=== PATIENT | female | born 1995 | race Caucasian/White ===

== ENCOUNTER 2022-02-08 12:30 | Observation (INO) | payer OTHER, SELFPAY ==
[2022-02-08] VITALS (12 sets, daily range): BP systolic 114–149; BP diastolic 57–98; PULSE 92–119; RESP 14–30; TEMP 36.4–37.5; O2SAT 91–100; BMI 42.3
--- NOTE | 2022-02-08 | PATH_ITS ---
[facility] Accession Number: [id number] . 01 Material submitted: . appendix - APPENDIX . 01 Diagnosis: Appendix, Appendectomy: Acute appendicitis and periappendicitis. MRV 02/11/2022 1429 Local . 01 Electronically signed: . Britni Lazaro MD, Pathologist NPI- [id number] . 01 Gross description: . Received in formalin in a specimen container, labeled with the patient's name and medical record number, appendix, is an intact appendix with attached moderate amount of mesentery and stapled resection margin. The specimen measures 7.5 cm in length and 0.9 cm in diameter. The stapled resection margin measures 0.7 cm in diameter. The serosal surface is diffusely dusky love, focally slightly hyperemic. No distinct perforations are grossly identified. The specimen is opened to reveal a centrally located lumen that measures 0.3 cm in diameter filled with fecal content. The average wall thickness is 0.3 cm. Airport Clerk sections are submitted in cassettes A1-A2 as follows: . A1: Bisected tip. A2: Resection margin en face and random sections. ([id number]) /MRV 02/10/2022 1033 Local . 01 Pathologist provided ICD-10: K35.80 . 01 CPT . 903023 Performed at: [facility] [address] [place] [address], [place], [place] [id number] MD Nic Ferrara MD Phone: [phone]
--- NOTE | 2022-02-08 16:06 | PC.NURSE ---
Day shift: Pt in room from BLS transport at approx 1600. She is calm and cooperative. Reports ABD pain 09/25. A&Ox4. Oriented to room and call light. Per PEYTON Glass surgery is ready for her NOW. Surgery dept called but no answer at this time. Dr Quevedo in room with Pt as this note is written ([id number]).
--- NOTE | 2022-02-08 16:16 | P.HP_ITS ---
History of Present Illness History of Present Illness Date Patient Seen: 02/08/22 Time Patient Seen: 16:16 Chief complaint: Acute Appendicitis Narrative: Sofie is a 26-year-old woman who presented to the emergency room at [facility] this morning complaining of roughly 12 hours of abdominal pain and nausea. She was noted to have a leukocytosis of 15,[address] scan was performed which showed a likely uncomplicated appendicitis. She was given Zosyn in the emergency room at [facility]. She has never had prior surgery. She is no known drug allergies. Patient History Comment: PCOS Carpal tunnel syndrome Seasonal allergies Anxiety and depression Exam Narrative Exam Narrative: Obese Right lower quadrant tenderness to deep palpation No peritoneal signs Assessment & Plan Assessment and plan (1) Acute appendicitis: Qualifiers: Acute appendicitis type: with localized peritonitis Appendicitis gangrene presence: without gangrene Appendicitis perforation presence: without perforation Appendicitis abscess presence: without abscess Qualified Code(s): K35.30 - Acute appendicitis with localized peritonitis, without perforation or gangrene Status: Acute Plan 26-year-old woman with acute appendicitis. We discussed the risks, benefits and alternatives of laparoscopic appendectomy. She would like to proceed. We will give her another dose of Zosyn before we go to surgery. Time Spent With Patient Critical Care time: I spent a total of [] minutes of critical care time on this patient's care today; this time is exclusive of procedural time.
[2022-02-08] MEDS: PIPERACILLIN/TAZO 4.5 GM in SODIUM CHLORIDE 0.9% 100 ML IV (16:43)
--- NOTE | 2022-02-08 17:27 | PC.NURSE ---
Pt got Zosyn started and infusing, to surgery, brief report given to OR RNs, VSS. POX 100% on RA. Pt off unit.
--- NOTE | 2022-02-08 18:13 | SUR.OPER ---
Supine on padded OR bed. Harrah Pad Positioner under torso. Head on pillow, arms padded and tucked at sides. Legs uncrossed, safety strap on thigh, lower legs on gel pad and tape across padded with blankets. directed and approved by surgeon
[2022-02-08] MEDS: LACTATED RINGERS 1,000 ML 100 ML IV ×2 (18:26→19:40)
[2022-02-08] MEDS: LIDOCAINE 1% W/EPI 12.5 ML INJ (18:26)
[2022-02-08] MEDS: BUPIVACAINE 0.5% (PF) VIAL 17.5 ML INJ (18:27)
--- NOTE | 2022-02-08 18:30 | PM.OP.1 ---
Operative Date/Time/Diagnoses Date of procedure: 02/08/22 Time of procedure: 18:30 Pre-op diagnosis: Acute appendicitis Post-op diagnosis: same Procedure & Clinicians Procedure: Laparoscopic appendectomy Same procedure as scheduled: Yes Surgeon: Thai Quevedo Anesthesia Type: General Operative Notes Findings: Inflamed appendix without perforation Procedure in detail: Procedure in detail: The patient was on Zosyn. The patient was brought to the operating room, placed on the table in the supine position and general endotracheal anesthesia was induced. A time-out was performed. The abdomen was prepped and draped in the usual fashion. After injection of local anesthetic a 1 cm infraumbilical incision was created with a 15 blade scalpel. The umbilical stalk was grasped with a Rashaun clamp to elevate the abdominal wall. The infraumbilical midline fascia was cleared over 1 cm and the fascia was scored with cautery. The peritoneum was pierced with a Peon clamp. The Fercho port was placed and the abdomen was insufflated to 15 mmHg. The camera was inserted and there was no evidence of any injury from the entry. Next, 5 mm ports were placed in the suprapubic and left lower quadrant positions under direct vision. The patient was placed in Trendelenburg with the right-side elevated. The terminal ileum was swept away from the cecum and the appendix was visualized. The appendix was inflamed and distended but not perforated and there was no evidence of gangrene. The mesoappendix was taken down with the bipolar energy device to the appendiceal base. Two PDS Endoloops were placed at the base and a 3rd endoloop was placed about a cm distally and the appendix was divided sharply. The specimen was placed in a Endo-Catch bag. A small amount of fluid with suction from the base of the appendix and pelvis. The table was flattened and the terminal ileum and omentum were allowed to slide in over the appendiceal stump. Finally, the 5 mm ports were removed under direct vision. The pneumoperitoneum was released and the Fercho port was removed followed by the Endo-Catch bag. Additional local was injected into the fascia and the infraumbilical incision was closed with 2 interrupted 2-0 Vicryl sutures. The skin incisions were closed with 4 Monocryl. Steri-Strips were applied followed by Band-Aids. EBL: 5 mL Specimen: Appendix Post-operative Condition: stable Disposition: PACU
[2022-02-08] MEDS: IBUPROFEN 600 MG TABLET PO (19:51)
[2022-02-08] MEDS: METOPROLOL IR 25 MG TABLET PO (22:45)
[2022-02-08] MEDS: HYDROCODONE/ACET 5/325 TABLET 1 TAB PO (22:45)
[2022-02-09] VITALS: BP 121/61; PULSE 86; RESP 17; TEMP 36.6; O2SAT 99
[2022-02-09] MEDS: HYDROCODONE/ACET 5/325 TABLET 1 TAB PO ×2 (03:46→08:07)
[2022-02-09 04:00] VITALS: BP 128/75; PULSE 84; RESP 16; TEMP 36.2; O2SAT 99
--- NOTE | 2022-02-09 06:45 | PC.NURSE ---
pt came back from PACU AROUND 1930 last night. Pt currently alert and oriented. Pt under control using norco (pt has allergic to it minor itching) which hasn't been happening at all tonight. pt IVF discontinued last night. Pt tolerating regular diet and along with adequate fluid intake. Incision to abdomen CDI. Osito at the bed side.
[2022-02-09 08:00] VITALS: BP 120/75; PULSE 76; RESP 16; TEMP 36.2; O2SAT 99
[2022-02-09] MEDS: SERTRALINE 50 MG TABLET 25 MG PO (08:07)
[2022-02-09] MEDS: METOPROLOL IR 25 MG TABLET PO (08:07)
[2022-02-09] MEDS: SODIUM CHLORIDE 0.9% FLUSH 10 ML IV (08:09)
--- NOTE | 2022-02-09 08:57 | P.DS_ITS ---
History of Present Illness History of Present Illness Chief complaint: Acute Appendicitis Narrative: Sofie is a 26-year-old woman who presented to the emergency room at [facility] this morning complaining of roughly 12 hours of abdominal pain and nausea. She was noted to have a leukocytosis of 15,[address] scan was performed which showed a likely uncomplicated appendicitis. She was given Zosyn in the emergency room at [facility]. She has never had prior surgery. She is no known drug allergies. Discharge Providers Provider Date of admission: 02/08/22 12:30 Discharge Date: 02/09/22 Primary care physician: Bossman Reis MD Discharge provider: Thai Quevedo MD Summary Hospital Course Discharge Diagnosis: Acute appendicitis Hospital Course: The patient underwent a laparoscopic appendectomy on the day of her admission which was 02/08/2022. See the op note for details. She tolerated the procedure well and went to the floor for recovery. She tolerated a diet with good pain control and was discharged on the morning of postoperative day 1. Status at Discharge Cognitive/behavioral status at discharge: oriented Functional status at discharge: independent ambulation Overall status at discharge: patient is back to baseline Exam Vital Signs (past 8 hours): - 02/09/22 04:00 02/09/22 08:00 02/09/22 08:00 Temperature 97.2 F L 97.2 F L Pulse Rate 84 76 Respiratory Rate 16 16 Blood Pressure 128/75 120/75 Pulse Oximetry 99 99 Oxygen Flow Rate 0 0 Oxygen Delivery Method Nasal Cannula Oxygen Flow Rate 0 PFSH Medical History (Updated 02/08/22 @ 17:48 by Ava Rushing RN) Depression Prediabetes Sinus tachycardia Surgical History (Updated 02/08/22 @ 17:47 by Ava Rushing RN) Hx of tonsillectomy Social History household members: spouse Smoking Status: Never smoker alcohol intake: never Discharge Plan Discharge Plan Patient Disposition: Home Provider Discharge Comment: No lifting greater than 20 lb for 2 weeks. Okay to remove the outer dressing and shower after 24 hours. Leave the Steri-Strips on until they start to peel off in 1-2 weeks. Resume all home medications. Discharge orders & Medications Prescriptions: New hydrocodone-acetaminophen 5-325 mg tablet 1 tab PO Q8H PRN (Reason: pain) Qty: 10 0RF Continued medroxyprogesterone [Provera] 10 mg tablet 10 tab PO DAILY Label Comments: TAKE 1 TABLET BY MOUTH EVERY DAY metformin 500 mg tablet extended release 24 hr 500 tab PO BID Label Comments: TAKE 1 TABLET BY MOUTH TWICE DAILY WITH MEALS AND WITH DINNER metoprolol tartrate 25 mg tablet 25 tab PO BID Label Comments: TAKE 1 TABLET BY MOUTH TWICE DAILY sertraline 25 mg tablet 25 tab PO DAILY Follow up/Referrals: Bossman Reis MD [Primary Care Provider] - Visit Report/Discharge Packet Instructions: DI for an Appendectomy, DI for Laparoscopy Discharge Data Primary Care Provider: Bossman Reis
== END 2022-02-09 11:02 | disposition home or self-care (01) ==
PROVIDERS: Admitting Provider Surgery; PCP Internal Medicine; Referring Provider Surgery; Visit Provider Surgery
PROC: 0DTJ4ZZ Resection of Appendix, Percutaneous Endoscopic Approach (ICD-10-PCS; CPT 44970; principal; 2022-02-08 16:15)
DX: K35.890 Other acute appendicitis without perforation or gangrene (principal); R73.03 Prediabetes; K21.9 Gastro-esophageal reflux disease without esophagitis; Z79.84 Long term (current) use of oral hypoglycemic drugs; F32.A Depression, unspecified; R00.0 Tachycardia, unspecified; E66.9 Obesity, unspecified
CPT/HCPCS: 44970; 99220; G0378; G0379; J2250; J2543; J2704; J3010

== ENCOUNTER → 2022-03-05 12:17 | Outpatient (CLI) | payer OTHER, SELFPAY ==
[2022-02-08 19:16] VITALS: BMI 42.3
--- NOTE | 2022-03-05 12:18 | DI.US.S_ITS ---
PROCEDURE: US PELVIC COMPLETE INDICATIONS: Hx of PCOS, oligomenorrhea; eval endometrial thickness TECHNIQUE: Real-time scanning was performed of the pelvic organs, with image documentation. Additional endovaginal scanning was necessary due to incomplete visualization of the adnexal and endometrial structures by transabdominal scanning. COMPARISON: [facility], RG, CT ABDOMEN/PELVIS WITHOUT CONTRAST, 02/08/2022, 8:38. FINDINGS: Uterus: Uterus is normal in size at 6.6 x 4.6 x 6.5 cm cm. The endometrium measures 18.6 mm combined thickness. The endometrial stripe appears thickened, with multiple hypoechoic foci within it. Incidental note is made of nabothian cysts. Ovaries: The ovaries are not well seen. On the right, there does appear to be more than 12 follicles. The right ovary measures 5.1 x 2.8 x 2.7 cm. The left ovary measures 4.7 x 2 5 x 2.4 cm. The ovaries have a normal sonographic appearance. No adnexal masses are seen. A normal appearing waveform is confirmed to the right ovary. Waveforms are not able to be confirmed to the left ovary. Other: A mild amount of free pelvic fluid is seen, which is considered to be within physiologic limits. IMPRESSION: Thickened, abnormal endometrial stripe, with multiple hypoechoic foci seen within it. More than 12 follicles can be seen involving the right ovary, which is consistent with polycystic ovarian syndrome. We strive to produce accurate, complete, and clear reports of imaging services. To assist us in improving patient care, this report was composed using standard report templates and voice recognition software. Therefore, it may contain abnormal punctuation, insertions and/or omissions. Occasional wrong-word or sound-alike substitutions may occur. Though we review the report and make efforts to correct it, we do recommend that the report be read carefully in proper context to recognize any text inaccuracies. Dictated by: Los Escobar M.D. on 03/05/2022 at 12:15 Approved by: Los Escobar M.D. on 03/05/2022 at 12:18
== END ==
PROVIDERS: PCP Internal Medicine; Referring Provider Obstetrics & Gynecology; Visit Provider Obstetrics & Gynecology
DX: E28.2 Polycystic ovarian syndrome (principal); N97.0 Female infertility associated with anovulation; R93.89 Abnormal findings on diagnostic imaging of other specified body structures
CPT/HCPCS: 76830; 76856

== ENCOUNTER 2023-04-22 19:23 | Emergency (ER) | payer OTHER, SELFPAY ==
[2023-04-22 19:23] VITALS: BMI 42.3
[2023-04-22 19:43] VITALS: BP 128/81; PULSE 86; RESP 18; TEMP 37.2; O2SAT 99
--- NOTE | 2023-04-22 19:55 | DI.RAD.S_ITS ---
PROCEDURE: XR CHEST 2V INDICATIONS: cough TECHNIQUE: 2 views of the chest were acquired. COMPARISON: None. FINDINGS: Surgical changes and devices: None. Lungs and pleura: Lung volumes are low. Mild peribronchial cuffing. No pleural effusions. Mediastinum: Heart size is normal. Bones and chest wall: No suspicious bony abnormalities. Soft tissues appear unremarkable. IMPRESSION: Low lung volumes. No dense consolidation or pleural effusion. Mild peribronchial cuffing could represent viral/atypical infection or bronchitis. Dictated by: Jeramy Quesada M.D. on 04/22/2023 at 20:44 Approved by: Jeramy Quesada M.D. on 04/22/2023 at 20:45
[2023-04-22 20:47] LABS: Influenza A - CEPHEID Flu A NEGATIVE (NEGATIVE); Influenza B - CEPHEID Flu B NEGATIVE (NEGATIVE); Respiratory Syncytial Virus Negative (Negative)
[2023-04-22 20:51] LABS: COVID-19 CEPHEID 4-PLEX PCR Negative (Negative)
--- NOTE | 2023-04-22 21:15 | ED.URI ---
HPI - URI/Sore Throat General Chief Complaint: Upper Respiratory Symptoms Stated Complaint: cough Time Seen by Provider: 04/22/23 19:27 Source: patient Mode of arrival: Ambulatory History of Present Illness HPI Narrative: 27-year-old female nonsmoker with history of diabetes presents with her in the chief complaint of a week or 2 of cough, typically dry and hacking. She states on occasion she gets some sharp twinges of pain on her lateral ribs associated with cough. She does admit to some shortness of breath with exertion but not all the time. She denies recent travel or hemoptysis. She denies any history of blood clot or lower extremity pain, swelling or redness. She is had some nasal congestion and mild sore throat. Related Data Home Medications Medication Instructions Recorded Confirmed metoprolol tartrate 25 mg tablet 25 tab PO BID 02/08/22 03/18/22 Previous Rx's Medication Instructions Recorded medroxyprogesterone 10 mg tablet 20 mg (2 x 10 mg) PO DAILY 12 days 03/18/22 (Provera) #12 tabs metformin 1,000 mg tablet 1,000 mg PO BIDWMEAL #60 tabs 03/18/22 doxycycline hyclate 100 mg tablet 100 mg PO BID #20 tabs 04/22/23 prednisone 20 mg tablet 20 mg PO DAILY #5 tabs 04/22/23 Allergies Allergy/AdvReac Type Severity Reaction Status Date / Time adhesive tape Allergy Mild Verified 03/18/22 10:27 Review of Systems Review of Systems Narrative: GENERAL: See HPI HEENT: See HPI RESPIRATORY: D see HPI CARDIOVASCULAR: Denies chest pain, palpitations, orthopnea, edema, GASTROINTESTINAL: Denies nausea, vomiting, abdominal pain, diarrhea, constipation, melena. : Denies dysuria, frequency, incontinence, hematuria, urinary retention. MUSCULOSKELETAL: denies weakness, joint pain, or bony pain SKIN: Denies rash, skin lesions, or other NEUROLOGIC: Denies weakness, headache, numbness, change in speech, confusion, seizures, incoordination. PSYCHIATRIC: No concerning psychosocial issues. 12 point review of systems is negative except for those stated above Patient History Medical History Wears glasses Skin tag Dry skin Anxiety Fractures (~2005) Carpal tunnel syndrome (~2020) Chicken pox Irregular menstrual cycle Sinus tachycardia (~2020) Prediabetes Depression Surgical History Anesthesia History of appendectomy (~02/08/22) Hx of tonsillectomy Family History Father Alcoholism Diabetes mellitus Marijuana use Mother Diabetes mellitus Marijuana use Brother Alcoholism Mental health problem Sister Mental health problem Grandfather Cancer Diabetes mellitus Grandmother Cancer Diabetes mellitus History of heart disease Stroke Grandfather Lung cancer Grandmother Cancer Social History household members: spouse Smoking Status: Never smoker alcohol intake: never Smoking Status: Never smoker alcohol intake frequency: holidays/special occasions only Substance Use Type: marijuana Exam Narrative Exam Narrative: GENERAL: [27] year old patient appears stated age. Well-developed patient, in mild distress. HEAD: Atraumatic. Normocephalic. EYES: Pupils equal round and reactive. Extraocular motions intact. No scleral icterus. No injection or drainage. ENT: Nose without bleeding, purulent drainage. Throat without erythema, tonsillar hypertrophy or exudate. Airway patent. NECK: Trachea midline. Non tender CARDIOVASCULAR: Regular rate and rhythm without murmurs, gallops, or rubs. RESPIRATORY: Clear to auscultation. Breath sounds equal bilaterally. No wheezes, rales, or rhonchi. Deep breath illicits dry cough GASTROINTESTINAL: Abdomen soft, non-tender, nondistended. EXTREMITIES: No edema or joint tenderness. BACK: Nontender without deformity or crepitance. No flank tenderness. NEURO: AOx3. SKIN: No rash or erythema of visible areas Initial Vital Signs Initial Vital Signs: Vital Signs Temperature 99 F 04/22/23 19:43 Pulse Rate 86 04/22/23 19:43 Respiratory Rate 18 04/22/23 19:43 Blood Pressure 128/81 04/22/23 19:43 Pulse Oximetry 99 04/22/23 19:43 Oxygen Delivery Method Room Air 04/22/23 19:43 Course Orders Ordered: ED Orders 04/22/23 19:55 Chest [XR chest 2V] Stat Covid-19 + FLU A/B + RSV - PCR Stat Discontinued Medications Albuterol (Albuterol Hfa Prepack) 1 box MISC SEEINSTR ONE Stop: 04/22/23 21:25 Last Admin: 04/22/23 21:31 Dose: 1 box Documented By: Prednisone (Prednisone 20 Mg Tablet) 40 mg PO NOW ONE Stop: 04/22/23 21:25 Last Admin: 04/22/23 21:31 Dose: 40 mg Documented By: Vital Signs Vital signs: Vital Signs - 8 hr 04/22/23 21:39 Pulse Rate 90 Respiratory Rate 18 Blood Pressure 136/81 Pulse Oximetry 99 Oxygen Delivery Method Room Air MDM - URI/Sore Throat Lab Data Labs: Lab Results 04/22/23 Range/Units 19:55 SARS-CoV-2 (PCR) Negative (Negative) Influenza A (RT-PCR) Flu a negative (NEGATIVE) Influenza B (RT-PCR) Flu b negative (NEGATIVE) RSV (PCR) Negative (Negative) MDM Narrative Medical decision making narrative: [27] year old patient presents with cough and mild other upper respiratory symptoms Multiple etiologies for patient's symptoms considered including, but not limited to: [Viral upper respiratory infection from flu, COVID or RSV versus atypical pneumonia versus less likely pulmonary embolism versus other] Prior Charts reviewed in our EMR Primary Historian: patient Labs reviewed and interpreted by myself: Respiratory panel negative for COVID, flu and RSV Imaging reviewed: Chest x-ray negative for obvious infiltrate Patient's history and physical exam are reassuring. Patient has no signs of respiratory distress, no hypoxemia, use of accessory muscles. No chest pain, stable vital signs. Multiple diagnoses considered as noted above. Pulmonary embolism thought very unlikely given low wells and PERC, we did discuss the potential of labs and even advanced imaging but given her very minor symptoms we sure the opinion that holding off, treating for atypical pneumonia right now makes the most sense. She is been given return precautions which is to include persistent pain, worsening shortness of breath, hemoptysis, elevated heart rate or other concerning symptoms Findings and discharge diagnosis discussed with patient/family followed by verbalization of understanding Return precautions discussed with patient/family whom verbalize understanding of diagnosis and plan Discharge Plan Departure Patient Disposition: Home Clinical Impression: Atypical pneumonia Instructions: Atypical Pneumonia Activity Restrictions/Additional Instructions: *You have been diagnosed with [atypical pneumonia] *What to do: *Please continue to take your regular medications as directed. [ x] New medication prescriptions sent to your pharmacy: [[facility] ] [ ] New medication written as a paper prescription [ ] No new medications given *Please follow up with your primary care provider in 2-3 days, call for an appointment. Let them know you were seen in the Emergency Department and that we ask that you be seen in follow up. We will electronically transmit a record of today's note if your PCP is in our system *If you do not have a primary care provider please contact the [facility] Resource line at [phone]. They will ask some questions about your medical history and help get you set up with a doctor in the community. *Return to Emergency Department if you should have any new, worsening or concerning symptoms, such as [fever greater than 101 F, shaking chills, worsening pain, persistent vomiting or other bothersome symptoms] Prescriptions: New prednisone 20 mg tablet 20 mg PO DAILY Qty: 5 0RF Rx Instructions: administer with food or milk doxycycline hyclate 100 mg tablet 100 mg PO BID Qty: 20 0RF No Action medroxyprogesterone [Provera] 10 mg tablet 20 mg PO DAILY 12 Days Qty: 12 12RF Rx Instructions: Start taking 2 tabs daily on the the first day of each calendar month. metformin 1,000 mg tablet 1,000 mg PO BIDWMEAL Qty: 60 12RF metoprolol tartrate 25 mg tablet 25 tab PO BID Patient Comments: TAKE 1 TABLET BY MOUTH TWICE DAILY Referrals: Bossman Reis MD [Primary Care Provider] - Stand Alone Forms: Patient Portal/API
[2023-04-22] MEDS: ALBUTEROL HFA PREPACK 1 BOX MISC (21:31)
[2023-04-22] MEDS: predniSONE 20 MG TABLET 40 MG PO (21:31)
[2023-04-22 21:39] VITALS: BP 136/81; PULSE 90; RESP 18; O2SAT 99
== END 2023-04-22 21:40 | disposition home or self-care (01) ==
PROVIDERS: Emergency Provider Emergency Medicine; PCP Internal Medicine
DX: J18.9 Pneumonia, unspecified organism (principal); Z20.822 Contact with and (suspected) exposure to COVID-19
CPT/HCPCS: 0241U; 71046; 99283

== ENCOUNTER → 2023-07-09 12:49 | Outpatient (CLI) | payer OTHER, SELFPAY ==
[2023-07-09 14:06] LABS: Prolactin 9.1 ng/mL (3.0-18.6)
[2023-07-09 14:19] LABS: TSH w/ Reflex to FT4 1.35 uIU/mL (0.47-4.68)
[2023-07-09 14:43] LABS: Rubella Antibody IgG 57.2 IU/mL (>15)
[2023-07-09 15:06] LABS: Progesterone, Total 0.74 ng/mL
== END ==
PROVIDERS: PCP Internal Medicine; Referring Provider Obstetrics & Gynecology; Visit Provider Obstetrics & Gynecology
DX: N97.0 Female infertility associated with anovulation (principal)
CPT/HCPCS: 36415; 84144; 84146; 84443; 86762

== ENCOUNTER 2023-09-13 18:58 | Emergency (ER) | payer OTHER, SELFPAY ==
[2023-09-13 19:24] VITALS: BP 137/80; PULSE 100; RESP 16; TEMP 36.8; O2SAT 99; BMI 44.4
--- NOTE | 2023-09-13 19:28 | DI.RAD.S_ITS ---
PROCEDURE: XR ANKLE RT MIN 3V INDICATIONS: Fall, rolled ankle TECHNIQUE: 3 views of the ankle were acquired. COMPARISON: None. FINDINGS: Bones: No displaced fracture or dislocation. Soft tissues: No suspicious calcifications. IMPRESSION: No acute radiographic abnormality. If there is high concern for occult injury, consider repeat radiography or cross-sectional imaging. Dictated by: Jeramy Quesada M.D. on 09/13/2023 at 20:25 Approved by: Jeramy Quesada M.D. on 09/13/2023 at 20:26
--- NOTE | 2023-09-13 20:39 | ED_ITS ---
HPI - Extremity Injury (Lower) General Chief Complaint: Extremity Injury, Lower Stated Complaint: ankle injury, pain Time Seen by Provider: 09/13/23 20:35 Source: patient Mode of arrival: Ambulatory History of Present Illness HPI Narrative: Patient is a 28-year-old female here for evaluation of a right ankle injury. She states that approximately 5 days ago she tripped and fell and thought that she twisted her right ankle/foot. She has had pain in the area since then but has been ambulatory. Symptoms have not improved all the way so wanted to come in to be evaluated. She has been using ice at home. Related Data Home Medications Medication Instructions Recorded Confirmed metoprolol tartrate 25 mg tablet 25 tab PO BID 02/08/22 03/18/22 famotidine 20 mg tablet 20 mg PO DAILY 05/26/23 05/26/23 (Zantac-360 (famotidine)) Allergies Allergy/AdvReac Type Severity Reaction Status Date / Time adhesive tape Allergy Mild Verified 09/13/23 19:24 Review of Systems Constitutional Constitutional: Reports system reviewed and no additional complaints, except as documented Musculoskeletal Musculoskeletal: Reports system reviewed and no additional complaints, except as documented Integumentary/Breasts Skin/Breast: Reports system reviewed and no additional complaints, except as documented Neurologic Neurologic: Reports system reviewed and no additional complaints, except as documented Patient History Medical History Wears glasses Skin tag Dry skin Anxiety Fractures (~2005) Carpal tunnel syndrome (~2020) Chicken pox Irregular menstrual cycle Sinus tachycardia (~2019) Prediabetes Depression Surgical History Anesthesia History of appendectomy (~02/08/22) Hx of tonsillectomy Family History Father Alcoholism Diabetes mellitus Marijuana use Mother Diabetes mellitus Marijuana use Brother Alcoholism Mental health problem Sister Mental health problem Grandfather Cancer Diabetes mellitus Grandmother Cancer Diabetes mellitus History of heart disease Stroke Grandfather Lung cancer Grandmother Cancer Social History household members: spouse Smoking Status: Never smoker alcohol intake: never Smoking Status: Never smoker alcohol intake frequency: holidays/special occasions only Substance Use Type: marijuana Exam Initial Vital Signs Initial Vital Signs: Vital Signs Temperature 98.2 F 09/13/23 19:24 Pulse Rate 100 H 09/13/23 19:24 Respiratory Rate 16 09/13/23 19:24 Blood Pressure 137/80 09/13/23 19:24 Pulse Oximetry 99 09/13/23 19:24 Oxygen Delivery Method Room Air 09/13/23 19:24 Cardio Pulses: dorsalis pedis present Skin General: no rashes or lesions noted Neuro General: patient alert and patient awake Extrem Other: No proximal fibular tenderness. Achilles tendon is intact. Does have some tenderness along the tibiotalar joint. No tenderness along the mediolateral malleolus. Course Orders Ordered: ED Orders 09/13/23 19:28 XR ankle RT min 3V Stat Vital Signs Vital signs: Vital Signs - 8 hr 09/13/23 19:24 09/13/23 20:50 Temperature 98.2 F Pulse Rate 100 H 98 H Respiratory Rate 16 16 Blood Pressure 137/80 129/81 Pulse Oximetry 99 99 Oxygen Delivery Method Room Air Room Air [facility] - Extremity Injury (Lower) Imaging Data Extremity x-ray #1: Radiologist's Impression: PROCEDURE:? XR ANKLE RT MIN 3V ? INDICATIONS:? Fall, rolled ankle ? TECHNIQUE:? 3 views of the ankle were acquired.?? ? COMPARISON:? None. ? FINDINGS:?? ? Bones:? No displaced fracture or dislocation. ? Soft tissues:? No suspicious calcifications. ? ? IMPRESSION:?? ? No acute radiographic abnormality.? If there is high concern for occult injury, consider? repeat radiography or cross-sectional imaging [facility] Narrative Medical decision making narrative: Patient is neurovascularly intact. X-ray shows no signs of fracture. No skin changes over the area. She is ambulatory. We will continue with conservative treatment. No indication for casting or splinting. Discharge home with return precautions. Discharge Plan Departure Patient Disposition: Home Clinical Impression: Right ankle sprain Instructions: DI for Ankle Sprain, How To Perform RICE (Rest, Ice, Compress, Elevate) Activity Restrictions/Additional Instructions: The x-ray today did not show any signs of a fracture so you can walk on your leg as tolerated. Contact your primary doctor for a follow-up. You can use Tylenol or ibuprofen for any discomfort. Prescriptions: No Action famotidine [Zantac-360 (famotidine)] 20 mg tablet 20 mg PO DAILY metoprolol tartrate 25 mg tablet 25 tab PO BID Patient Comments: TAKE 1 TABLET BY MOUTH TWICE DAILY Referrals: Bossman Reis MD [Primary Care Provider] - Stand Alone Forms: Patient Portal/API
[2023-09-13 20:50] VITALS: BP 129/81; PULSE 98; RESP 16; O2SAT 99
== END 2023-09-13 20:50 | disposition home or self-care (01) ==
PROVIDERS: Emergency Provider Emergency Medicine; PCP Internal Medicine
DX: S93.401A Sprain of unspecified ligament of right ankle, initial encounter (principal); W01.0XXA Fall on same level from slipping, tripping and stumbling without subsequent striking against object, initial encounter
CPT/HCPCS: 73610; 99283

== ENCOUNTER 2023-10-30 12:52 | Emergency (ER) | payer OTHER, SELFPAY ==
[2023-10-30 12:55] VITALS: BP 167/80; PULSE 102; RESP 18; TEMP 37.1; O2SAT 98; BMI 42.3
--- NOTE | 2023-10-30 13:04 | DI.RAD.S_ITS ---
PROCEDURE: XR CHEST 1V INDICATIONS: cough with recent PNA TECHNIQUE: One view of the chest was acquired. COMPARISON: [facility], CR, XR CHEST 2V, 04/22/2023, 20:30. FINDINGS: Surgical changes and devices: None. Lungs and pleura: Lungs are clear. No pleural effusions or pneumothorax. Mediastinum: Mediastinal contours appear normal. Heart size is normal. Bones and chest wall: No suspicious bony lesions. Overlying soft tissues appear unremarkable. IMPRESSION: No acute pulmonary process. Dictated by: Suzie Moseley M.D. on 10/30/2023 at 13:28 Approved by: Suzie Moseley M.D. on 10/30/2023 at 13:29
--- NOTE | 2023-10-30 13:54 | ED.SOB ---
HPI - SOB/Dyspnea <Chani Peña PA-C - Last Filed: 10/30/23 19:19> General Chief Complaint: Shortness of Breath/Dyspnea Stated Complaint: per pt suspected pneumonia Time Seen by Provider: 10/30/23 13:10 Source: patient Mode of arrival: Ambulatory Limitations: no limitations History of Present Illness HPI Narrative: 28-year-old female with history of diabetes, possible PCOS, obesity here today for cough and shortness of breath with exertion. Symptoms ongoing for 2-3 days. She has also had a frontal headache for about 9 days that is mild but bothersome. She denies any vision changes, nausea, vomiting, or other alarming symptoms with her headache. She denies any URI symptoms associated with the cough. States she only feels short of breath with exertion and that short walks across her house that are normally no problem are causing her to feel short of breath. She also had an episode of lightheadedness while doing the dishes earlier today. She presented to the ED similarly 1 year ago within normal chest x-ray and was treated for atypical pneumonia despite normal vital signs and negative chest x-ray. She states the antibiotics at that time did not seem to help but the inhaler she was given then did seem to help a lot. She has taken Provera multiple times over the last year to help conceive and she just finished her most recent course of Provera 2 days ago. States she never had any side effects while taking it before. She denies any chest pain or syncope. No recent travel. No recent swelling or pain in her lower legs. No history of blood clots or clotting disorders. Related Data Home Medications Medication Instructions Recorded Confirmed metoprolol tartrate 25 mg tablet 25 tab PO BID 02/08/22 03/18/22 famotidine 20 mg tablet 20 mg PO DAILY 05/26/23 05/26/23 (Zantac-360 (famotidine)) Previous Rx's Medication Instructions Recorded albuterol sulfate 90 mcg/actuation 2 puff inhalation Q4-6H PRN 10/30/23 aerosol inhaler shortness of breath or wheezing #6.7 grams Allergies Allergy/AdvReac Type Severity Reaction Status Date / Time adhesive tape Allergy Mild Verified 09/13/23 19:24 acetaminophen [From Vicodin] Allergy ITCHING Verified 10/30/23 13:02 cat dander Allergy ITCHING Verified 10/30/23 13:02 hydrocodone [From Vicodin] Allergy ITCHING Verified 10/30/23 13:02 Review of Systems <Chani Peña PA-C - Last Filed: 10/30/23 19:19> Review of Systems ROS Unobtainable: All systems reviewed & are unremarkable except as noted in HPI and below Patient History <Chani Peña PA-C - Last Filed: 10/30/23 19:19> Medical History Wears glasses Skin tag Dry skin Anxiety Fractures (~2005) Carpal tunnel syndrome (~2020) Chicken pox Irregular menstrual cycle Sinus tachycardia (~2019) Prediabetes Depression Surgical History Anesthesia History of appendectomy (~02/08/22) Hx of tonsillectomy Family History Father Alcoholism Diabetes mellitus Marijuana use Mother Diabetes mellitus Marijuana use Brother Alcoholism Mental health problem Sister Mental health problem Grandfather Cancer Diabetes mellitus Grandmother Cancer Diabetes mellitus History of heart disease Stroke Grandfather Lung cancer Grandmother Cancer Social History household members: spouse Smoking Status: Never smoker alcohol intake: never Smoking Status: Never smoker alcohol intake frequency: holidays/special occasions only Substance Use Type: marijuana Exam <Chani Peña PA-C - Last Filed: 10/30/23 19:19> Narrative Exam Narrative: GENERAL: [28] year old patient appears stated age. Well-developed patient, in no acute distress. No respiratory distress, speaking in full sentences. Alert. HEAD: Atraumatic. Normocephalic. EYES: Pupils equal round and reactive. Extraocular motions intact. No scleral icterus. No injection or drainage. ENT: Nose without bleeding, purulent drainage. Throat without erythema, tonsillar hypertrophy or exudate. Airway patent. NECK: Trachea midline. Non tender CARDIOVASCULAR: Intermittent tachycardia. Otherwise Regular rate and rhythm without murmurs, gallops, or rubs. RESPIRATORY: Clear to auscultation. Breath sounds equal bilaterally. No wheezes, rales, or rhonchi. GASTROINTESTINAL: Abdomen soft, non-tender, nondistended. EXTREMITIES: No edema or joint tenderness. No calf swelling or erythema. NEURO: AOx3. SKIN: No rash or erythema of visible areas Initial Vital Signs Initial Vital Signs: Vital Signs Temperature 98.7 F 10/30/23 12:55 Pulse Rate 102 H 10/30/23 12:55 Respiratory Rate 18 10/30/23 12:55 Blood Pressure 167/80 H 10/30/23 12:55 Pulse Oximetry 98 10/30/23 12:55 Oxygen Delivery Method Room Air 10/30/23 12:55 <Ayesha Sampson DO - Last Filed: 10/31/23 09:12> Initial Vital Signs Initial Vital Signs: Vital Signs Temperature 98.7 F 10/30/23 12:55 Pulse Rate 102 H 10/30/23 12:55 Respiratory Rate 18 10/30/23 12:55 Blood Pressure 167/80 H 10/30/23 12:55 Pulse Oximetry 98 10/30/23 12:55 Oxygen Delivery Method Room Air 10/30/23 12:55 Scores <Chani Peña PA-C - Last Filed: 10/30/23 19:19> Wells' Criteria for PE Clinical signs and symptoms of DVT: No PE is #1 Dx or equally likely: No Heart rate > 100: Yes Immobilization at least 3 days or surg in previous 4 weeks: No History of PE or DVT: No Hemoptysis: No Malignancy w/Treatment within 6 months or palliative: No Wells' PE Score total: 1.5 <Ayesha Sampson DO - Last Filed: 10/31/23 09:12> Wells' Criteria for PE Wells' PE Score total: 1.5 Course <Chani Peña PA-C - Last Filed: 10/30/23 19:19> Orders Ordered: ED Orders 10/30/23 13:04 XR chest 1V Stat 10/30/23 13:06 Respiratory Panel (Film Array) Stat 10/30/23 14:26 Complete Blood Count AUTO DIFF Stat Comprehensive Metabolic Panel Stat D Dimer Stat NT-proBNP (BNP-Adult 18+) Stat PTT Partial Thromboplastin Lexa Stat Prothrombin Time INR Stat Troponin & CK Cardiac Panel Stat 10/30/23 14:29 Test Urine Stat Urinalysis and Microscopic Stat 10/30/23 15:50 CT angio chest PE protocol Stat Vital Signs Vital signs: Vital Signs - 8 hr 10/30/23 12:55 10/30/23 15:48 10/30/23 17:13 Temperature 98.7 F Pulse Rate 102 H 100 H 98 H Respiratory Rate 18 18 18 Blood Pressure 167/80 H 123/58 L 128/57 L Pulse Oximetry 98 98 100 Oxygen Delivery Method Room Air Room Air Room Air <Ayesha Sampson DO - Last Filed: 10/31/23 09:12> Orders Ordered: ED Orders 10/30/23 13:04 XR chest 1V Stat 10/30/23 13:06 Respiratory Panel (Film Array) Stat 10/30/23 14:26 Complete Blood Count AUTO DIFF Stat Comprehensive Metabolic Panel Stat D Dimer Stat NT-proBNP (BNP-Adult 18+) Stat PTT Partial Thromboplastin Lexa Stat Prothrombin Time INR Stat Troponin & CK Cardiac Panel Stat 10/30/23 14:29 Test Urine Stat Urinalysis and Microscopic Stat 10/30/23 15:50 CT angio chest PE protocol Stat Vital Signs Vital signs: Vital Signs - 8 hr 10/30/23 12:55 10/30/23 15:48 10/30/23 17:13 Temperature 98.7 F Pulse Rate 102 H 100 H 98 H Respiratory Rate 18 18 18 Blood Pressure 167/80 H 123/58 L 128/57 L Pulse Oximetry 98 98 100 Oxygen Delivery Method Room Air Room Air Room Air MDM - SOB/Dyspnea <Chani L JOELLEN Peña - Last Filed: 10/30/23 19:19> Lab Data 10/30/23 14:26 10/30/23 14:26 Labs: Lab Results 10/30/23 10/30/23 10/30/23 Range/Units 13:06 14:26 14:29 WBC 13.0 H (4.5-11.0) X10^3/uL RBC 4.91 (4.0-5.2) X10^6/uL Hgb 14.4 (12.0-16.0) g/dL Hct 42.5 (36-46) % MCV 86.6 (80-100) fL MCH 29.2 (26-34) PG MCHC 33.8 (30-36) % RDW 13.3 (11.6-14.8) % Plt Count 434 H (150-400) X10^3/uL Neut % (Auto) 66.4 (50-75) % Lymph % (Auto) 20.5 L (25-40) % Bullock % (Auto) 7.9 (3-14) % Eos % (Auto) 4.4 H (2-4) % Baso % (Auto) 0.8 (0-2) % Neut # (Auto) 8600 H (8099-0867) /uL Lymph # (Auto) 2700 (5932-6155) /uL Bullock # (Auto) 1000 H (0-900) /uL Eos # (Auto) 600 H (0-450) /uL Baso # (Auto) 100 (0-100) /uL PT 13.1 H (9.4-12.5) SECONDS INR 1.1 (0.9-1.3) APTT 37 H (25.1-36.5) SECONDS D-Dimer 597 H (<500) ng/ml Sodium 138 (137-145) mmol/L Potassium 3.9 (3.4-5.1) mmol/L Chloride 105 (98-107) mmol/L Carbon Dioxide 28 (22-32) mmol/L BUN 11 (7-17) mg/dL Creatinine 0.76 (0.52-1.04) mg/dL Estimated GFR > 60 (>60) mL/min BUN/Creatinine Ratio 14.5 (6-22) Glucose 102 H (70-100) mg/dL Calcium 9.6 (8.4-10.2) mg/dL Total Bilirubin 0.8 (0.2-1.3) mg/dL AST 41 H (14-36) IU/L ALT 66 H (<35) IU/L Alkaline Phosphatase 77 (38-126) U/L Total Creatine Kinase 124 (30-135) U/L Troponin I < 0.012 (0.01-0.034) ng/mL NT-Pro-B Natriuret Pep 60 (<125) pg/mL Total Protein 8.7 H (6.3-8.2) g/dL Albumin 4.6 (3.5-5.0) g/dL Globulin 4.1 (1.7-4.1) g/dL Albumin/Globulin Ratio 1.1 (1.0-2.8) Urine Color Yellow Urine Appearance Clear Urine pH 5.5 (4.5-8.0) Ur Specific [place] 1.010 (1.000-1.035) Urine Protein Negative (Negative) Urine Glucose (UA) Negative (Negative) g/dL Urine Ketones Negative (NEGATIVE) Urine Occult Blood Negative (Negative) Urine Nitrate Negative (Negative) Urine Bilirubin Negative (NEGATIVE) Urine Urobilinogen 1.0 (0.2) E.U./dL Ur Leukocyte Esterase Negative (NEGATIVE) Urine RBC 0-1/hpf (0-5/HPF) Urine WBC 0-1/hpf (0-5/HPF) Ur Squamous Epith Cells 5-10 /hpf H (0-5/HPF) Urine Bacteria Occasional (0-1) (None) Urine Mucus 1+ H (Negative) Ur Culture Indicated? Cult not indicated Vol Urine Centrifuged 10ml (spun) Urine Test Negative (Negative) Chlamy pneumoniae PCR Not detected (Not Detect) Adenovirus (PCR) Not detected (Not Detect) B.parapertussis DNA PCR Not detected (Not Detecte) Coronavirus OC43 (PCR) Not detected (Not Detect) Coronavirus HKU1 (PCR) Not detected (Not Detect) Coronavirus 229E (PCR) Not detected (Not Detect) SARS-CoV-2 (PCR) Not detected (Not Detecte) Coronavirus NL63 (PCR) Not detected (Not Detect) Human Metapneumovir PCR Not detected (Not Detect) Influenza Type A (PCR) Not detected (Not Detect) Influenza Type B (PCR) Not detected (Not Detect) M. pneumoniae (PCR) Not detected (Not Detect) Parainfluenza 1 (PCR) Not detected (Not Detect) Parainfluenza 2 (PCR) Not detected (Not Detect) Parainfluenza 3 (PCR) Not detected (Not Detect) Parainfluenza 4 (PCR) Not detected (Not Detect) RSV (PCR) Not detected (Not Detect) Entero/Rhino (PCR) Not detected (Not Detect) Point of Care Testing Test Results Negative Imaging Data Chest x-ray: Radiologist's Impression: [address] [address] XRay Report Signed Patient: Sofie Thapa MR#: [id number] : 1995 Acct:[id number] Age/Sex: 28 / F Date of Service: 10/30/23 Loc: ED Accession Number: [id number] Procedure: XR chest 1V Ordering Provider: Ayesha Sampson D.O. PROCEDURE: XR CHEST 1V INDICATIONS: cough with recent PNA TECHNIQUE: One view of the chest was acquired. COMPARISON: [facility], CR, XR CHEST 2V, 04/22/2023, 20:30. FINDINGS: Surgical changes and devices: None. Lungs and pleura: Lungs are clear. No pleural effusions or pneumothorax. Mediastinum: Mediastinal contours appear normal. Heart size is normal. Bones and chest wall: No suspicious bony lesions. Overlying soft tissues appear unremarkable. IMPRESSION: No acute pulmonary process. Dictated by: Suzie Moseley M.D. on 10/30/2023 at 13:28 Approved by: Suzie Moseley M.D. on 10/30/2023 at 13:29 CT scan - chest: Radiologist's Impression: [place] [address] CT Scan Report Signed Patient: Sofie Thapa MR#: [id number] : 1995 Acct:[id number] Age/Sex: 28 / F Date of Service: 10/30/23 Loc: ED Accession Number: [id number] Procedure: CT angio chest PE protocol Ordering Provider: Chani Peña P.A-C PROCEDURE: CT ANGIO CHEST PE PROTOCOL INDICATIONS: Short of breath, tachy, elevated D dimer TECHNIQUE: After the administration of intravenous contrast, 2 mm thick sections acquired from the pulmonary apices to the posterior costophrenic angles. 3-dimensional maximum intensity projection (MIP) coronal and sagittal reformats were then acquired through the thorax. For radiation dose reduction, the following was used: automated exposure control, adjustment of mA and/or kV according to patient size. COMPARISON: [facility], , XR CHEST 1V, 10/30/2023, 13:04. [facility], , CT ABDOMEN/PELVIS WITHOUT CONTRAST, 02/08/2022, 8:38. FINDINGS: Image quality: Diagnostic. Pulmonary arteries: Pulmonary arteries are normal in size, and demonstrate no intraluminal filling defects to suggest central pulmonary embolism. Lower Neck: No enlarged lymph nodes. Thyroid: No thyroid nodules which require sonographic follow up, per consensus guidelines. Axillae: No enlarged lymph nodes. Chest Wall: Unremarkable. Bones: Unremarkable. Lungs and Pleura: No pneumothorax or pleural effusions. No consolidation or suspicious nodules. Heart: Heart size is normal. No pericardial effusion. Thoracic Vessels: No aortic aneurysm. Mediastinum and Fani: No enlarged lymph nodes. Esophagus: No wall thickening. No hiatal hernia. Upper Abdomen: An enlarged, fatty infiltrated liver can be seen. The spleen is enlarged, measuring 13.5 cm in greatest axial dimension. The visualized portions of the upper abdominal structures are otherwise unremarkable for imaging technique. IMPRESSION: No pulmonary embolus. No acute cardiopulmonary process. Additional findings: Enlarged, fatty infiltrated liver Mild splenomegaly Dictated by: Los Escobar M.D. on 10/30/2023 at 15:48 Approved by: Los Escobar M.D. on 10/30/2023 at 15:49 MDM Narrative Medical decision making narrative: Patient presented today with and SOB with exertion. No chest pain, hemoptysis, fevers, shortness of breath at rest, chest pain. She was initially mildly tachycardic and hypertensive. States she has been diagnosed with some kind of intermittent sinus tachycardia but it has been well controlled on metoprolol and she has not had any episodes of tachycardia recently until now. She has history of diabetes and possibly PCOS. She has been taking Provera to help conception which she stopped taking 2 days ago. She has not had any other URI symptoms preceding or along with her cough and SOB. She is stable appearing and has no respiratory distress and no increased work of breathing. She is speaking in full sentences, maybe mildly anxious. Her chest x-ray is negative. Given her complaint of SOB with exertion, her tachycardia, her obesity and history of being on Provera there was some mild concern to rule out PE so a D-dimer was done which came back mildly elevated. After discussion with the patient the decision was made to proceed with CT angio which came back negative for PE. Patient does not appear to have bacterial pneumonia at this time given her lack of typical symptoms and her negative chest x-ray. She states last year when this occurred albuterol seemed very helpful so I have prescribed her albuterol at this time. We discussed follow up with her PCP as well as return precautions to the ED should she have any new or worsening symptoms. Multiple etiologies for patient's symptoms considered including, but not limited to: URI, pneumonia, asthma, pulmonary embolism Findings and discharge diagnosis discussed with patient/family followed by verbalization of understanding Return precautions discussed with patient/family whom verbalize understanding of diagnosis and plan <Ayesha Sampson, DO - Last Filed: 10/31/23 09:12> Lab Data Labs: Lab Results 10/30/23 10/30/23 10/30/23 Range/Units 13:06 14:26 14:29 WBC 13.0 H (4.5-11.0) X10^3/uL RBC 4.91 (4.0-5.2) X10^6/uL Hgb 14.4 (12.0-16.0) g/dL Hct 42.5 (36-46) % MCV 86.6 (80-100) fL MCH 29.2 (26-34) PG MCHC 33.8 (30-36) % RDW 13.3 (11.6-14.8) % Plt Count 434 H (150-400) X10^3/uL Neut % (Auto) 66.4 (50-75) % Lymph % (Auto) 20.5 L (25-40) % Bullock % (Auto) 7.9 (3-14) % Eos % (Auto) 4.4 H (2-4) % Baso % (Auto) 0.8 (0-2) % Neut # (Auto) 8600 H (2971-7596) /uL Lymph # (Auto) 2700 (3462-5929) /uL Bullock # (Auto) 1000 H (0-900) /uL Eos # (Auto) 600 H (0-450) /uL Baso # (Auto) 100 (0-100) /uL PT 13.1 H (9.4-12.5) SECONDS INR 1.1 (0.9-1.3) APTT 37 H (25.1-36.5) SECONDS D-Dimer 597 H (<500) ng/ml Sodium 138 (137-145) mmol/L Potassium 3.9 (3.4-5.1) mmol/L Chloride 105 (98-107) mmol/L Carbon Dioxide 28 (22-32) mmol/L BUN 11 (7-17) mg/dL Creatinine 0.76 (0.52-1.04) mg/dL Estimated GFR > 60 (>60) mL/min BUN/Creatinine Ratio 14.5 (6-22) Glucose 102 H (70-100) mg/dL Calcium 9.6 (8.4-10.2) mg/dL Total Bilirubin 0.8 (0.2-1.3) mg/dL AST 41 H (14-36) IU/L ALT 66 H (<35) IU/L Alkaline Phosphatase 77 (38-126) U/L Total Creatine Kinase 124 (30-135) U/L Troponin I < 0.012 (0.01-0.034) ng/mL NT-Pro-B Natriuret Pep 60 (<125) pg/mL Total Protein 8.7 H (6.3-8.2) g/dL Albumin 4.6 (3.5-5.0) g/dL Globulin 4.1 (1.7-4.1) g/dL Albumin/Globulin Ratio 1.1 (1.0-2.8) Urine Color Yellow Urine Appearance Clear Urine pH 5.5 (4.5-8.0) Ur Specific [place] 1.010 (1.000-1.035) Urine Protein Negative (Negative) Urine Glucose (UA) Negative (Negative) g/dL Urine Ketones Negative (NEGATIVE) Urine Occult Blood Negative (Negative) Urine Nitrate Negative (Negative) Urine Bilirubin Negative (NEGATIVE) Urine Urobilinogen 1.0 (0.2) E.U./dL Ur Leukocyte Esterase Negative (NEGATIVE) Urine RBC 0-1/hpf (0-5/HPF) Urine WBC 0-1/hpf (0-5/HPF) Ur Squamous Epith Cells 5-10 /hpf H (0-5/HPF) Urine Bacteria Occasional (0-1) (None) Urine Mucus 1+ H (Negative) Ur Culture Indicated? Cult not indicated Vol Urine Centrifuged 10ml (spun) Urine Test Negative (Negative) Chlamy pneumoniae PCR Not detected (Not Detect) Adenovirus (PCR) Not detected (Not Detect) B.parapertussis DNA PCR Not detected (Not Detecte) Coronavirus OC43 (PCR) Not detected (Not Detect) Coronavirus HKU1 (PCR) Not detected (Not Detect) Coronavirus 229E (PCR) Not detected (Not Detect) SARS-CoV-2 (PCR) Not detected (Not Detecte) Coronavirus NL63 (PCR) Not detected (Not Detect) Human Metapneumovir PCR Not detected (Not Detect) Influenza Type A (PCR) Not detected (Not Detect) Influenza Type B (PCR) Not detected (Not Detect) M. pneumoniae (PCR) Not detected (Not Detect) Parainfluenza 1 (PCR) Not detected (Not Detect) Parainfluenza 2 (PCR) Not detected (Not Detect) Parainfluenza 3 (PCR) Not detected (Not Detect) Parainfluenza 4 (PCR) Not detected (Not Detect) RSV (PCR) Not detected (Not Detect) Entero/Rhino (PCR) Not detected (Not Detect) Point of Care Testing Test Results Negative Discharge Plan Departure Patient Disposition: Home Clinical Impression: Shortness of Breath Instructions: How to Manage Shortness of Breath Activity Restrictions/Additional Instructions: You were seen today for shortness of breath and a cough. Through various blood tests and imaging we ruled out pneumonia and a blood clot as well as other infections as a cause of your symptoms. It is possible that you have a viral upper respiratory infection or you could be experiencing symptoms of something similar to asthma. You have been prescribed an albuterol inhaler which she can use every 4-6 hours as needed for shortness of breath. Please follow up with your regular doctor if your symptoms are not improving with the use of this inhaler over the next 1-2 weeks. Please return to the ER if you of sudden worsening in your shortness of breath or increased chest pain or a headache that presents with a vision changes, vomiting, or severe pain. Prescriptions: New albuterol sulfate 90 mcg/actuation HFA aerosol inhaler 2 puff inhalation Q4-6H PRN (Reason: shortness of breath or wheezing) Qty: 6.7 0RF No Action famotidine [Zantac-360 (famotidine)] 20 mg tablet 20 mg PO DAILY metoprolol tartrate 25 mg tablet 25 tab PO BID Patient Comments: TAKE 1 TABLET BY MOUTH TWICE DAILY Referrals: Bossman Reis MD [Primary Care Provider] - Stand Alone Forms: Patient Portal/API ED Sign-out <Ayesha Sampson DO - Last Filed: 10/31/23 09:12> Cosign ED Attending Cossherriature Attestation: I was immediately available in the department for consultation. Case was discussed and plan for evaluation with cardiac labs and D-dimer to evaluate for pulmonary emboli, dimer was very mildly elevated but patient does have risk factors and CT angio was obtained which workup shows enlarged fatty liver mild splenomegaly but no other acute changes. Patient felt appropriate for discharge home.
[2023-10-30 14:25] LABS: Adenovirus Not Detected (Not Detect); B. parapertussis Not Detected (Not Detecte); Bordetella pertussis Not Detected (Not Detect); Chlamydophila pneumoniae Not Detected (Not Detect); Coronavirus 229E Not Detected (Not Detect); Coronavirus HKU1 Not Detected (Not Detect); Coronavirus NL 63 Not Detected (Not Detect); Coronavirus OC43 Not Detected (Not Detect); Human Metapneumovirus Not Detected (Not Detect); Human Rhinovirus/Enterovirus Not Detected (Not Detect); Influenza A Not Detected (Not Detect); Influenza B Not Detected (Not Detect); Mycoplasma pneumoniae Not Detected (Not Detect); Parainfluenza Virus 1 Not Detected (Not Detect); Parainfluenza Virus 2 Not Detected (Not Detect); Parainfluenza Virus 3 Not Detected (Not Detect); Parainfluenza Virus 4 Not Detected (Not Detect); Respiratory Syncytial Virus Not Detected (Not Detect); SARS- CoV-2 Not Detected (Not Detecte)
[2023-10-30 14:36] LABS: Add Manual Diff / Slide Review NO; Basophils Absolute Auto 100 /uL (0-100); Basophils Percent Auto 0.8 % (0-2); Eosinophils Absolute Auto 600 /uL (0-450); Eosinophils Percent Auto 4.4 % (2-4); Hematocrit 42.5 % (36-46); Hemoglobin 14.4 g/dL (12.0-16.0); Lymphocytes Absolute Auto 2700 /uL (1100-4500); Lymphocytes Percent Auto 20.5 % (25-40); Mean Corpuscular HGB Conc 33.8 % (30-36); Mean Corpuscular Hemoglobin 29.2 PG (26-34); Mean Corpuscular Volume 86.6 fL (80-100); Monocytes Absolute Auto 1000 /uL (0-900); Monocytes Percent Auto 7.9 % (3-14); Neutrophils Absolute Auto 8600 /uL (1500-7000); Neutrophils Percent Auto 66.4 % (50-75); Platelet Count 434 X10^3/uL (150-400); Red Blood Cell Count 4.91 X10^6/uL (4.0-5.2); Red Cell Distribution Width 13.3 % (11.6-14.8)
[2023-10-30 14:41] LABS: Appearance Urine UA CLEAR; Bilirubin Urine UA NEGATIVE (NEGATIVE); Color Urine UA YELLOW; Glucose Urine UA NEGATIVE (Negative); Ketones Urine UA NEGATIVE (NEGATIVE); Leukocyte Esterase Urine UA NEGATIVE (NEGATIVE); Nitrite Urine UA NEGATIVE (Negative); Occult Blood Urine UA NEGATIVE (Negative); Protein Urine UA NEGATIVE (Negative)
[2023-10-30 14:44] LABS: Pregnancy Test Urine Negative (Negative); pH Urine UA 5.5 (4.5-8.0)
[2023-10-30 14:47] LABS: INR 1.1 (0.9-1.3); Prothrombin Time 13.1 SECONDS (9.4-12.5)
[2023-10-30 14:48] LABS: D Dimer 597 ng/ml (<500)
[2023-10-30 14:49] LABS: PTT Partial Thromboplastin Tim 37 SECONDS (25.1-36.5)
[2023-10-30 14:50] LABS: Bacteria Urine Occasional (0-1); Culture Indicated Urine Cult Not Indicated; Mucus Urine 1+ (Negative); RBC Urine 0-1/HPF (0-5/HPF); Squamous Epithelial Cell Urine 5-10 /HPF (0-5/HPF); Urine Volume 10mL (spun); WBC Urine 0-1/HPF (0-5/HPF)
[2023-10-30 14:51] LABS: Alanine Aminotransferase 66 IU/L (<35); Albumin 4.6 g/dL (3.5-5.0); Albumin Globulin Ratio 1.1 (1.0-2.8); Alkaline Phosphatase 77 U/L (38-126); Aspartate Aminotransferase 41 IU/L (14-36); BUN Creatinine Ratio 14.5 (6-22); Bilirubin Total 0.8 mg/dL (0.2-1.3); Blood Urea Nitrogen 11 mg/dL (7-17); Calcium 9.6 mg/dL (8.4-10.2); Carbon Dioxide 28 mmol/L (22-32); Chloride 105 mmol/L (98-107); Creatine Kinase 124 U/L (30-135); Estimated Glomerular Filt Rate > 60 mL/min (>60); Globulin 4.1 g/dL (1.7-4.1); Glucose 102 mg/dL (70-100); HEMOLYSIS < 15 (0-50); Potassium 3.9 mmol/L (3.4-5.1); Sodium 138 mmol/L (137-145); Total Protein 8.7 g/dL (6.3-8.2)
[2023-10-30 15:00] LABS: NT-proBNP (BNP-Adult 18+) 60 pg/mL (<125)
[2023-10-30 15:02] LABS: Troponin I < 0.012 ng/mL (0.01-0.034)
[2023-10-30 15:48] VITALS: BP 123/58; PULSE 100; RESP 18; O2SAT 98
--- NOTE | 2023-10-30 15:50 | DI.CT.S_ITS ---
PROCEDURE: CT ANGIO CHEST PE PROTOCOL INDICATIONS: Short of breath, tachy, elevated D dimer TECHNIQUE: After the administration of intravenous contrast, 2 mm thick sections acquired from the pulmonary apices to the posterior costophrenic angles. 3-dimensional maximum intensity projection (MIP) coronal and sagittal reformats were then acquired through the thorax. For radiation dose reduction, the following was used: automated exposure control, adjustment of mA and/or kV according to patient size. COMPARISON: [facility], CR, XR CHEST 1V, 10/30/2023, 13:04. [facility], RG, CT ABDOMEN/PELVIS WITHOUT CONTRAST, 02/08/2022, 8:38. FINDINGS: Image quality: Diagnostic. Pulmonary arteries: Pulmonary arteries are normal in size, and demonstrate no intraluminal filling defects to suggest central pulmonary embolism. Lower Neck: No enlarged lymph nodes. Thyroid: No thyroid nodules which require sonographic follow up, per consensus guidelines. Axillae: No enlarged lymph nodes. Chest Wall: Unremarkable. Bones: Unremarkable. Lungs and Pleura: No pneumothorax or pleural effusions. No consolidation or suspicious nodules. Heart: Heart size is normal. No pericardial effusion. Thoracic Vessels: No aortic aneurysm. Mediastinum and Fani: No enlarged lymph nodes. Esophagus: No wall thickening. No hiatal hernia. Upper Abdomen: An enlarged, fatty infiltrated liver can be seen. The spleen is enlarged, measuring 13.5 cm in greatest axial dimension. The visualized portions of the upper abdominal structures are otherwise unremarkable for imaging technique. IMPRESSION: No pulmonary embolus. No acute cardiopulmonary process. Additional findings: Enlarged, fatty infiltrated liver Mild splenomegaly Dictated by: Los Escobar M.D. on 10/30/2023 at 15:48 Approved by: Los Escobar M.D. on 10/30/2023 at 15:49
[2023-10-30 17:13] VITALS: BP 128/57; PULSE 98; RESP 18; O2SAT 100
== END 2023-10-30 17:10 | disposition home or self-care (01) ==
PROVIDERS: Emergency Medicine; Emergency Provider Physician Assistant; PCP Internal Medicine
DX: R06.02 Shortness of breath (principal); R00.0 Tachycardia, unspecified; I10 Essential (primary) hypertension; Z20.822 Contact with and (suspected) exposure to COVID-19
CPT/HCPCS: 71045; 71275; 80053; 81001; 81025; 82550; 83880; 84484; 85025; 85379; 85610; 85730; 87633; 99284; Q9967

== ENCOUNTER 2023-10-31 19:41 | Emergency (ER) | payer OTHER, SELFPAY ==
[2023-10-31 19:44] VITALS: BP 131/65; PULSE 116; RESP 18; TEMP 39.3; O2SAT 98; BMI 41.5
--- NOTE | 2023-10-31 19:55 | DI.RAD.S_ITS ---
PROCEDURE: XR CHEST 2V INDICATIONS: fever, cough, feeling worse than yesterday TECHNIQUE: 2 views of the chest were acquired. COMPARISON: [facility], CR, XR CHEST 1V, 10/30/2023, 13:04. [facility], CR, XR CHEST 2V, 04/22/2023, 20:30. FINDINGS: Surgical changes and devices: None. Lungs and pleura: Lungs are clear. No pleural effusions or pneumothorax. Mediastinum: Mediastinal contours are normal. Heart size is normal. Bones and chest wall: No suspicious bony abnormalities. Soft tissues appear unremarkable. IMPRESSION: No acute cardiopulmonary abnormality is seen. Dictated by: Jake Quintero M.D. on 10/31/2023 at 20:23 Approved by: Jake Quintero M.D. on 10/31/2023 at 20:23
--- NOTE | 2023-10-31 21:41 | ED.SOB ---
HPI - SOB/Dyspnea General Chief Complaint: Shortness of Breath/Dyspnea Stated Complaint: hard to breathe Time Seen by Provider: 10/31/23 19:49 Source: patient Mode of arrival: Ambulatory Limitations: no limitations History of Present Illness HPI Narrative: 28-year-old female presents for nonproductive cough and shortness of breath. Patient is seen 1 day prior for same symptoms, underwent thorough workup including laboratory work, chest x-ray, CT angio of her chest. All of these were normal and patient was discharged home with an albuterol inhaler. Patient states that she feels worse today and has to ?concentrate on my walk? otherwise she has coughing fits that are severe. She states she was told to come back if her symptoms were worse and so she is here today for evaluation. No other medications taken at home for symptoms. Related Data Home Medications Medication Instructions Recorded Confirmed metoprolol tartrate 25 mg tablet 25 tab PO BID 02/08/22 03/18/22 famotidine 20 mg tablet 20 mg PO DAILY 05/26/23 05/26/23 (Zantac-360 (famotidine)) Previous Rx's Medication Instructions Recorded albuterol sulfate 90 mcg/actuation 2 puff inhalation Q4-6H PRN 10/30/23 aerosol inhaler shortness of breath or wheezing #6.7 grams benzonatate 200 mg capsule 200 mg PO TID PRN cough #30 caps 10/31/23 Allergies Allergy/AdvReac Type Severity Reaction Status Date / Time adhesive tape Allergy Mild Verified 09/13/23 19:24 acetaminophen [From Vicodin] Allergy ITCHING Verified 10/30/23 13:02 cat dander Allergy ITCHING Verified 10/30/23 13:02 hydrocodone [From Vicodin] Allergy ITCHING Verified 10/30/23 13:02 Review of Systems Review of Systems Narrative: See HPI Patient History Medical History Wears glasses Skin tag Dry skin Anxiety Fractures (~2005) Carpal tunnel syndrome (~2020) Chicken pox Irregular menstrual cycle Sinus tachycardia (~2019) Prediabetes Depression Surgical History Anesthesia History of appendectomy (~02/08/22) Hx of tonsillectomy Family History Father Alcoholism Diabetes mellitus Marijuana use Mother Diabetes mellitus Marijuana use Brother Alcoholism Mental health problem Sister Mental health problem Grandfather Cancer Diabetes mellitus Grandmother Cancer Diabetes mellitus History of heart disease Stroke Grandfather Lung cancer Grandmother Cancer Social History household members: spouse Smoking Status: Never smoker alcohol intake: never Smoking Status: Never smoker alcohol intake frequency: holidays/special occasions only Substance Use Type: marijuana Exam Initial Vital Signs Initial Vital Signs: Vital Signs Temperature 102.7 F H 10/31/23 19:44 Pulse Rate 116 H 10/31/23 19:44 Respiratory Rate 18 10/31/23 19:44 Blood Pressure 131/65 10/31/23 19:44 Pulse Oximetry 98 10/31/23 19:44 Oxygen Delivery Method Room Air 10/31/23 19:44 Const: Awake, alert, no acute distress, nontoxic appearing Cardiac: Tachycardia, regular rhythm RESP: unlabored, clear bilaterally, no wheezing Skin: Warm, Dry, intact, no rashes Neuro: AO x3, CN II-XII grossly intact, moves all extremities Course Orders Ordered: ED Orders 10/31/23 19:55 Chest [XR chest 2V] Stat Vital Signs Vital signs: Vital Signs - 8 hr 10/31/23 21:54 Pulse Rate 110 H Respiratory Rate 14 Blood Pressure 125/67 Pulse Oximetry 97 Oxygen Delivery Method Room Air MDM - SOB/Dyspnea Differential Diagnosis Differential diagnosis: Likely community acquired pneumonia, asthma with exacerbation and pulmonary embolism Imaging Data Chest x-ray: Radiologist's Impression: PROCEDURE: XR CHEST 2V INDICATIONS: fever, cough, feeling worse than yesterday TECHNIQUE: 2 views of the chest were acquired. COMPARISON: [facility], CR, XR CHEST 1V, 10/30/2023, 13:04. [facility], CR, XR CHEST 2V, 04/22/2023, 20:30. FINDINGS: Surgical changes and devices: None. Lungs and pleura: Lungs are clear. No pleural effusions or pneumothorax. Mediastinum: Mediastinal contours are normal. Heart size is normal. Bones and chest wall: No suspicious bony abnormalities. Soft tissues appear unremarkable. IMPRESSION: No acute cardiopulmonary abnormality is seen. Dictated by: Jake Quintero M.D. on 10/31/2023 at 20:23 Approved by: Jake Quintero M.D. on 10/31/2023 at 20:23 [facility] Narrative Medical decision making narrative: Repeat visit for nonproductive cough and shortness of breath. Lungs are clear to auscultation bilaterally, she was saturating well on room air. She was found to be febrile, but no other physical exam abnormalities are present. With a recent negative workup just 24 hours prior an unremarkable physical exam there is a little utility in repeating laboratory work at this time. Repeat two-view chest x-ray negative for acute process, no change from prior. No need to repeat CT angio at this time. Patient counseled on x-ray findings as well as results from yesterday. Recommended Tylenol and Motrin as needed for pain or fever, cough medications sent to pharmacy of choice. Note for work provided. Discharge Plan Departure Patient Disposition: Home Clinical Impression: Shortness of breath, Upper respiratory infection Instructions: DI for Viral Upper Respiratory Infection -- Adult Activity Restrictions/Additional Instructions: TAKE Tylenol and Motrin as needed for fever or discomfort. Make sure to get plenty of rest and drink plenty of fluids. Use the cough medications as needed. Follow up with your primary care doctor. Prescriptions: New benzonatate 200 mg capsule 200 mg PO TID PRN (Reason: cough) Qty: 30 0RF No Action famotidine [Zantac-360 (famotidine)] 20 mg tablet 20 mg PO DAILY albuterol sulfate 90 mcg/actuation HFA aerosol inhaler 2 puff inhalation Q4-6H PRN (Reason: shortness of breath or wheezing) Qty: 6.7 0RF metoprolol tartrate 25 mg tablet 25 tab PO BID Patient Comments: TAKE 1 TABLET BY MOUTH TWICE DAILY Referrals: Bossman Reis MD [Primary Care Provider] - Stand Alone Forms: Patient Portal/API, Work Release Note
[2023-10-31 21:54] VITALS: BP 125/67; PULSE 110; RESP 14; O2SAT 97
== END 2023-10-31 21:56 | disposition home or self-care (01) ==
PROVIDERS: Emergency Provider Emergency Medicine; PCP Internal Medicine
DX: J06.9 Acute upper respiratory infection, unspecified (principal); R06.02 Shortness of breath
CPT/HCPCS: 71046; 99281; 99283